=== PATIENT | female | born 1985 | race Caucasian/White ===

== ENCOUNTER 2021-04-14 16:18 | Emergency (ER) | payer OTHER ==
[2021-04-14 16:58] VITALS: BP 111/70; PULSE 74; TEMP 98.5; BMI 25.4
[2021-04-16 12:07] LABS: SARS-CoV-2 NAA Detected (Not Detected)
== END 2021-04-14 22:19 | disposition home or self-care (01) ==
LOC: JER 16:18 → JERFT 16:18
DX: J02.8 Acute pharyngitis due to other specified organisms (principal)
CPT/HCPCS: 87070; 87651; 87804; 99283-25; C9803; U0003; U0005